=== PATIENT | male | born 1950 | race Caucasian/White ===

== ENCOUNTER 2018-05-05 10:10 | Inpatient (IN) ==
[2018-05-05] MEDS ORDERED: NORMAL SALINE 1,000 ML IV ONE ×2 (10:21→11:22)
[2018-05-05] MEDS ORDERED: DIATRIZOATE MEGLUMINE, SODIUM 30 ML BTL PO ONE (10:26)
--- NOTE | 2018-05-05 10:26 | ERNOTE ---
Abdominal HPI - Narrative Date of Service: 05/05/18 - General Chief Complaint: Abdominal Pain Time Seen by Provider: 05/05/18 10:16 Source: patient Exam Limitations: no limitations - Immun/Allergies/Home Medications Immunizatons: IMMUNIZATION HX Immunizations Up to Date Yes History of Influenza Vaccine Yes Hx Pneumococcal Vaccination No Allergies/Adverse Reactions: Allergies No Known Allergies Allergy (Unverified 05/05/18 10:21) Home Medications: HOME MEDICATIONS Hydrochlorothiazide [Hydrodiuril] 25 mg PO DAILY 05/05/18 [Last Taken Unknown] - History of Present Illness Narrative: Patient is feeling dehydrated. He relates that he was in the hospital for colitis a little over a week ago. Severe diarrhea, CT revealed colitis. He took 7 days of antibiotics but still feels weak and dehydrated. No CP or SOB. No vomiting. No blood in stool. Mild intermittent abdominal pain. Nothing seems to make this better or worse. Timing: constant Quality: mild Activities at Onset: none Modifying Factors - (Improves): Present: other - nothign Modifying Factors - (Worsens): Present: other - nothign Associated Symptoms: Absent: chest pain, fever/chills, shortness of breath, swelling/mass in abdomen Prior Abdominal Problems: Present: none Prior Treatment: Present: recently seen, treated by physician Review of Systems - Review of Systems Constitutional: Absent: fever EYE: Present: no symptoms reported ENT: Absent: sore throat Respiratory: Absent: shortness of breath Cardiology: Absent: chest pain Gastrointestinal/Abdominal: Present: See HPI Genitourinary: Absent: dysuria All Other Systems: All systems neg except as marked - Patient's Past Medical History Patient History - Medical: Other Patient History - Cardiac/Respiratory: Hypertension Patient History - Cancer: No Hx of Cancer Patient History - Surgical Procedures: Appendectomy Patient History - Other: None - Social History Living Situations: home Abuse History: No History of abuse Psych History: No pertinent hx Smoking Status: Never smoker Alcohol Use: sober Drug Use: none - Immunizations Immunizations Up to Date: Yes Hx Pneumococcal Vaccination: No History of Influenza Vaccine: Yes Physical Exam - Physical Exam General Appearance: Present: alert, no apparent distress Head Exam: Present: normal inspection, no evidence of injury Eye Exam: Normal inspection: bilateral, PERRL: bilateral Ears, Nose, Throat: Present: normal ENT inspection Neck: Present: normal inspection Respiratory: Present: no respiratory distress, normal breath sounds, no accessory muscle use, lungs clear Cardiovascular/Chest: Present: regular rate, rhythm, normal peripheral pulses Gastrointestinal/Abdominal: Present: normal bowel sounds, nondistended, soft, other - mild left sided tenderness. No peritoneal signs. No guarding or rebound. Back Exam: Absent: CVA tenderness (R), CVA tenderness (L) Extremity Exam: Present: normal range of motion Neurological Exam: Present: alert, no motor/sensory deficits Skin Exam: Present: normal color, warm/dry ED Progress - Results and Orders Patient's Lab Results:: I have reviewed the patient's lab results. - Vital Signs Patient's Vital Signs:: I have reviewed the patient's vital signs. Vital Signs: Vital Signs 05/05/18 10:18 Temperature 36.8 C Pulse Rate 114 H Respiratory 18 Rate Blood Pressure 122/75 O2 Sat by Pulse 96 Oximetry - EKG EKG read: Interp. by me EKG Comments: Sinus tachycardia, rate 108. Non-specific, no STEMI - CT/Ultrasound CT/Ultrasound Narrative: I reviewed officail radiology report for CT abd/pelvis - Progress/Reassessment Chief Complaint: Abdominal Pain Progress Note-Subjective: 05/05/18 14:34 IV fluids and IV ABx given. Will admit the patient, D/W Dr Willoughby. Patient agreeable. Departure Clinical Impression: Fever, Leukocytosis, Dehydration, Colitis - Departure Disposition: Still a patient Condition: Stable
[2018-05-05] MEDS ORDERED: DIATRIZOATE MEGLUMINE, SODIUM 30 ML BTL ONE (10:34)
[2018-05-05 10:45] LABS: Hematocrit 41.2 % (42.0-52.0); Hemoglobin 13.8 gm/dL (13.5-18.0); Mean Cell Volume 93.8 fl (78-100); Mean Corpuscular Hemoglobin 31.4 pg (27-31); Mean Corpuscular Hgb Conc 33.5 g/dl (32-36); Mean Platelet Volume 10.6 fl (8-11.3); Neutrophil # 20.5 K/mm3 (1.3-6.0); Neutrophil % 89.3 % (42-75.0); Platelet Count 273 K/mm3 (150-450); Red Blood Count 4.39 M/mm3 (4.7-6.0); Red Cell Distribution Width 13.6 % (11.5-14.0)
[2018-05-05 11:01] LABS: Total Cells Counted 100
[2018-05-05 11:02] LABS: ALT 27 U/L (19-67); AST 14 U/L (0-48); Albumin * 3.3 gm/dl (3.4-5.0); Alkaline Phosphatase * 59 U/L (50-170); BUN/Creatinine Ratio 13.1 (9.0-21.6); Bilirubin, Total 0.8 mg/dL (0.0-1.1); Blood Urea Nitrogen 17 mg/dL (6-23); CRP 4.5 mg/dL (0.0-0.9); Ca. Corrected For Albumin 8.9 mg/dL (8.4-10.2); Calcium * 8.7 mg/dL (7.9-10.9); Carbon Dioxide 24.7 mmol/L (24-32.6); Chloride 100 mmol/L (97-106); Glucose * 136 mg/dL (70-110); Lipase 775 U/L (73-393); Potassium 3.7 mmol/L (3.4-4.6); Sodium 138 mmol/L (132-142); Total Protein 7.8 gm/dL (6.2-8.2)
[2018-05-05 11:05] LABS: Troponin I Less than 0.017 ng/ml (0.00-0.10)
[2018-05-05 11:37] LABS: Band 11 % (0-2.0); Immature Granulocyte 1 (0-1); Lymphocyte 4 % (20-51); Monocyte 7 % (0-9); Neutrophil 77 % (42-75); Neutrophil # 17.7 K/mm3 (1.3-6.0)
[2018-05-05 12:59] LABS: Urine Bilirubin Negative (NEGATIVE); Urine Blood Negative /ul (NEGATIVE); Urine Ketone Negative (NEGATIVE); Urine Nitrite Negative (NEGATIVE); Urine Protein Negative (NEGATIVE); Urine Specific Gravity 1.025 SP.GR. (1.005-1.030); Urine Urobilinogen Normal (NORMAL)
[2018-05-05 13:07] LABS: Urine Appearance Slightly Cloudy (CLEAR); Urine Color Yellow
[2018-05-05 13:08] LABS: Urine Bacteria None Seen; Urine RBC None Seen /hpf (0-5); Urine WBC None Seen /hpf (0-5)
[2018-05-05] MEDS ORDERED: PIPERACILLIN SODIUM/TAZOBACTAM 3.375 GM in DEXTROSE 5 % IN WATER 100 ML IV ONE ×6 (14:25→16:10)
[2018-05-05] MEDS ORDERED: LEVOFLOXACIN IN DEXTROSE 5 % 500 MG/100 ML BAG IV SCH (14:30)
[2018-05-05] MEDS ORDERED: metroNIDAZOLE/SODIUM CHLORIDE 500 MG/100 ML BAG IV SCH (14:30)
[2018-05-05] MEDS ORDERED: HYDROmorphone HCL 2 MG/ML VIAL IV PRN (20:21)
[2018-05-05] MEDS ORDERED: ONDANSETRON HCL/PF 2 MG/ML VIAL IV PRN (20:22)
--- NOTE | 2018-05-05 20:26 | HP ---
Chief Complaint - Chief Complaint Date of Service: 05/05/18 Time of Service: 20:17 Chief Complaint: "Watery Diarrhea, fevers". Source of HPI- Pt; reliable, ERP report. History of Present Illness: Mr. Storey is a 68-yr-old WM with PMH of HTN only. Pt is from [place], [place] and was in the area to conduct a service for his sister in law. He reports that about 1 week ago, he developed diarrhea while in his hometown and went to the ER. Imaging tests done there showed he had Colitis. He was discharged home on Cipro and Flagyl. He states that the diarrhea was mostly liquid/watery. He denied the associated symptoms of abdominal pain & nausea, vomiting and bloody stools. He had fevers and chills. The symptoms were not aggravated by eating or drinking. He states that he took the antibiotics as advised and the diarrhea slowed down. However,today, he began having the diarrhea again and they were as many as 23 times, was liquid yellow, watery and he had a fever of 102.2. At the ED he was febrile with temp of 38.5. The significant abnormal labs were: WBC-->23,000 with LT shift & 11 bands, CRP--> 4.5, Amylase--> 127, Lipase --> 12.7. An abdominal CT scan showed residual colonic wall thickening in the sigmoid colon with the findings being suggestive of resolving/resolved sigmoid colitis. He will be admitted for failure to outpatient treatment of colitis. - Patient's Past Medical History Patient History - Medical: No pertinent hx, Other Patient History - Cardiac/Respiratory: Hypertension Patient History - Cancer: No Hx of Cancer Patient History - Surgical Procedures: Appendectomy Patient History - Other: None - Family History Brother Family History - Medical: Father Family History - Medical: Family History - Cardiac/Respiratory: Aneurysm Mother Family History - Medical: , History Unknown - Social History Living Situations: spouse Abuse History: No History of abuse Psych History: No pertinent hx Smoking Status: Never smoker Have you smoked in the past 12 months: No Alcohol Use: sober Drug Use: none - Immunizations Immunizations Up to Date: Yes Hx Pneumococcal Vaccination: No History of Influenza Vaccine: Yes Review Of Systems (GEN) - Review of Systems Generalized/Overall Review: Present: Weakness, Chills, Fever, Malaise, Fatigue. Absent: Diaphoresis EENTM: Absent: Eye Pain, Blurred Vision, Tearing Respiratory: Absent: Cough, Shortness of Breath, Orthopnea Cardiac: Absent: Chest Pain, Edema Abdominal: Present: Diarrhea. Absent: Nausea, Vomiting, Hematemesis, Abdominal Pain, Melena, Bright blood from rectum Genitourinary: Absent: Burning, Itching, Urgency, Frequency, Hematuria Musculoskeletal: Absent: Joint Pain, Back Pain, Joint Swelling Neurological: Present: Headache. Absent: Anxiety, Depressed, Emotional Problems , Numbness, Parasthesia Skin: Present: Dryness. Absent: Lesions, Bruising Endocrine: Present: Other. Absent: Intolerance to Cold, Flushing, Increased Thirst Misc: All systems neg except as marked Immunizations: IMMUNIZATION HX Immunizations Up to Date Yes History of Influenza Vaccine Yes Hx Pneumococcal Vaccination No Allergies/Adverse Reactions: Allergies Allergy/AdvReac Type Severity Reaction Status Date / Time No Known Allergies Allergy Verified 05/05/18 15:15 Home Medications: HOME MEDICATIONS Cholecalciferol [Vitamin D] 5,000 unit PO DAILY 05/05/18 [Last Taken Unknown] Cyanocobalamin (Vitamin B-12) [Vitamin B12] 2,500 mcg PO DAILY 05/05/18 [Last Taken Unknown] Hydrochlorothiazide [Hydrodiuril] 25 mg PO DAILY 05/05/18 [Last Taken Unknown] Exam - Exam Vital Signs: Vital Signs - Last Taken Temp 37.6 C H 05/05/18 15:09 Pulse 91 05/05/18 15:09 Resp 16 05/05/18 15:09 BP 135/80 05/05/18 15:09 Pulse Ox 96 05/05/18 15:09 Constitutional: Present: Alert, Oriented x3, Cooperative, Mild distress ENT Exam: Present: normal ENT inspection, dry mucous membranes Eye Exam: bilateral eye: normal inspection, PERRL Neck: Present: non-tender, full range of motion Back Exam: Present: normal inspection, no CVA tenderness Breasts: Present: Exam deferred Respiratory: Present: No rales, No wheezing Cardiovascular/Chest: Present: normal peripheral pulses, regular rate, rhythm, no chest tenderness Abdomen: Present: Normal bowel sounds, soft, no rebound tenderness, tender - Tender all over.. Absent: guarding /Rectal: Present: Exam deferred Extremity: Present: normal range of motion, normal inspection, no pedal edema Skin Exam: Present: warm/dry, no cyanosis Lymphatic: Present: no adenopathy Neurologic: Present: alert, normal mood/affect, oriented x 3 Appearance: Present: appropriate appearance, appropriate insight Eye contact: Present: cooperative, good eye contact, normal speech Thoughts: Present: normal thought pattern, no apparent hallucination Diagnostic Studies: Laboratory Results WBC 23.0 K/mm3 (4.0-10.5) H 05/05/18 10:43 RBC 4.39 M/mm3 (4.7-6.0) L 05/05/18 10:43 Hgb 13.8 gm/dL (13.5-18.0) 05/05/18 10:43 Hct 41.2 % (42.0-52.0) L 05/05/18 10:43 MCV 93.8 fl (78-100) 05/05/18 10:43 MCH 31.4 pg (27-31) H 05/05/18 10:43 MCHC 33.5 g/dl (32-36) 05/05/18 10:43 RDW 13.6 % (11.5-14.0) 05/05/18 10:43 Plt Count 273 K/mm3 (150-450) 05/05/18 10:43 MPV 10.6 fl (8-11.3) 05/05/18 10:43 Immature Gran % (Auto) 0.70 % (0.001-0.429) H 05/05/18 10:43 Immature Gran # (Auto) 0.16 K/mm3 (0.000-0.0310) H 05/05/18 10:43 Neutrophils % 89.3 % (42-75.0) H 05/05/18 10:43 Neutrophils % (Manual) 77 % (42-75) H 05/05/18 10:43 Band Neuts % (Manual) 11 % (0-2.0) H 05/05/18 10:43 Lymphocytes % 5.4 % (20-51) L 05/05/18 10:43 Lymphocytes % (Manual) 4 % (20-51) L 05/05/18 10:43 Monocytes % 4.3 % (0.0-9) 05/05/18 10:43 Monocytes % (Manual) 7 % (0-9) 05/05/18 10:43 Eosinophils % 0.0 % (0.0-3.0) 05/05/18 10:43 Basophils % 0.3 % (0.0-1.0) 05/05/18 10:43 Nucleated RBC % 0.0 k/mm3 (0-1) 05/05/18 10:43 Immature Granulocytes 1 (0-1) 05/05/18 10:43 Neutrophils # 20.5 K/mm3 (1.3-6.0) H 05/05/18 10:43 Neutrophils # (Manual) 17.7 K/mm3 (1.3-6.0) H 05/05/18 10:43 Lymphocytes # 1.25 k/mm3 (1.5-3.5) L 05/05/18 10:43 Lymphocytes # (Manual) 0.9 k/mm3 (1.5-3.5) L 05/05/18 10:43 Monocytes # 1.0 k/mm3 (0.0-1.0) 05/05/18 10:43 Monocytes # (Manual) 1.6 k/mm3 (0.0-1.0) H 05/05/18 10:43 Eosinophils # 0.0 k/mm3 (0.0-0.7) 05/05/18 10:43 Absolute Basophils 0.1 k/mm3 (0.0-0.1) 05/05/18 10:43 Sodium 138 mmol/L (132-142) 05/05/18 10:43 Plasma Sodium 139 mmol/L (130-142) 05/05/18 10:43 Potassium 3.7 mmol/L (3.4-4.6) 05/05/18 10:43 Chloride 100 mmol/L (97-106) 05/05/18 10:43 Carbon Dioxide 24.7 mmol/L (24-32.6) 05/05/18 10:43 Anion Gap 17.0 mmol/L (6.8-13.8) H 05/05/18 10:43 BUN 17 mg/dL (6-23) 05/05/18 10:43 Creatinine 1.30 mg/dL (0.4-1.4) 05/05/18 10:43 Est GFR (Non-Af Amer) 58 mL/min (60-130) L 05/05/18 10:43 BUN/Creatinine Ratio 13.1 (9.0-21.6) 05/05/18 10:43 Random Glucose 136 mg/dL (70-110) H 05/05/18 10:43 Calcium 8.7 mg/dL (7.9-10.9) 05/05/18 10:43 Calcium Adj for Albumin 8.9 mg/dL (8.4-10.2) 05/05/18 10:43 Total Bilirubin 0.8 mg/dL (0.0-1.1) 05/05/18 10:43 AST 14 U/L (0-48) 05/05/18 10:43 ALT 27 U/L (19-67) 05/05/18 10:43 Alkaline Phosphatase 59 U/L (50-170) 05/05/18 10:43 Troponin I Less than 0.017 ng/ml (0.00-0.10) 05/05/18 10:43 C-Reactive Prot, Quant 4.5 mg/dL (0.0-0.9) H 05/05/18 10:43 Total Protein 7.8 gm/dL (6.2-8.2) 05/05/18 10:43 Albumin 3.3 gm/dl (3.4-5.0) L 05/05/18 10:43 Amylase 127 U/L (25-115) H 05/05/18 10:25 Lipase 775 U/L (73-393) H 05/05/18 10:43 Urine Color Yellow 05/05/18 12:53 Urine Appearance Slightly cloudy (CLEAR) 05/05/18 12:53 Urine pH 6.0 pH (5.0-7.0) 05/05/18 12:53 Ur Specific Golf 1.025 SP.GR. (1.005-1.030) 05/05/18 12:53 Urine Protein Negative mg/dL (NEGATIVE) 05/05/18 12:53 Urine Glucose (UA) Negative mg/dL (NEGATIVE) 05/05/18 12:53 Urine Ketones Negative mg/dL (NEGATIVE) 05/05/18 12:53 Urine Blood Negative /ul (NEGATIVE) 05/05/18 12:53 Urine Nitrate Negative (NEGATIVE) 06/12/18 12:53 Urine Bilirubin Negative mg/dl (NEGATIVE) 05/05/18 12:53 Urine Urobilinogen Normal EU/dl (NORMAL) 05/05/18 12:53 Ur Leukocyte Esterase Negative /ul (NEGATIVE) 05/05/18 12:53 Urine RBC None seen /hpf (0-5) 05/05/18 12:53 Urine WBC None seen /hpf (0-5) 18 12:53 Ur Epithelial Cells 0-5 /hpf (0-5) 05/05/18 12:53 Urine Bacteria None seen (NONE) 05/05/18 12:53 Assessment/Plan - Assessment/Plan (1) Colitis Assessment: Pt is a 68-yr old WM who presented with complaints of watery diarrhea as many 23 times on DOA. He had been treated with Cipro and Flagyl for what was found to be colitis about 1 week ago and he reported the symptoms seemed to resolve. He denies the associated symptoms of abdminal pain, nauseam, vomiting and hematochezia. He has had fevers and chills. He was found to have an elevated WBC of 23,000 with Left shift and Bandemia. CT scan of the Abdomen showed resolving/resolved sigmoid colitis. Will check several stool studies: Stool cultures, c-diff, Lactoferin and Fecal Calprotectin to help distinguish if it's infectious colitis or medication related colitis. He was given Levaquin and Flagyl at the ED. Since the pt symptoms seemed to relapse after initial treatment with Cipro/flagyl, it is recommended that same regimen be repeated for a period of 1 month. Will provide supportive care with IVF hydration, advance diet as slava, monitor labs, v.s Problem: Acute (2) Elevated pancreatic enzyme Assessment: The pancreas is normal appearing on CT. Will trend the levels. Laboratory Tests 05/05/18 05/05/18 10:25 10:43 Amylase 127 H Lipase 775 H Problem: Acute (3) Leukocytosis Problem: Acute Qualifiers: Leukocytosis type: bandemia Qualified Code(s): D72.825 - Bandemia (4) HTN (hypertension) Assessment: Stable- continue HCTZ. Problem: Chronic Qualifiers: Hypertension type: essential hypertension Qualified Code(s): I10 - Essential (primary) hypertension
[2018-05-05] MEDS: POTASSIUM CHLORIDE 20 MEQ in DEXTROSE 5%-NORMAL SALINE 990 ML IV SCH (21:56)
[2018-05-06] MEDS ORDERED: PIPERACILLIN SODIUM/TAZOBACTAM 3.375 GM in DEXTROSE 5 % IN WATER 100 ML IV SCH ×2
[2018-05-06] MEDS: metroNIDAZOLE/SODIUM CHLORIDE 500 MG/100 ML BAG IV SCH ×4 (00:44→22:12)
[2018-05-06] MEDS: CIPROFLOXACIN IN 5 % DEXTROSE 400 MG/200 ML BAG IV SCH ×3 (02:10→23:46)
[2018-05-06 05:32] LABS: Hematocrit 34.4 % (42.0-52.0); Hemoglobin 11.5 gm/dL (13.5-18.0); Mean Cell Volume 93.2 fl (78-100); Mean Corpuscular Hemoglobin 31.2 pg (27-31); Mean Corpuscular Hgb Conc 33.4 g/dl (32-36); Mean Platelet Volume 10.7 fl (8-11.3); Neutrophil # 9.9 K/mm3 (1.3-6.0); Neutrophil % 80.1 % (42-75.0); Platelet Count 222 K/mm3 (150-450); Red Blood Count 3.69 M/mm3 (4.7-6.0); Red Cell Distribution Width 13.7 % (11.5-14.0); White Blood Count 12.3 K/mm3 (4.0-10.5)
[2018-05-06 05:44] LABS: Albumin * 2.4 gm/dl (3.4-5.0); Anion Gap 10.9 mmol/L (6.8-13.8); BUN/Creatinine Ratio 9.1 (9.0-21.6); Bilirubin, Total 0.5 mg/dL (0.0-1.1); Ca. Corrected For Albumin 8.9 mg/dL (8.4-10.2); Calcium * 7.9 mg/dL (7.9-10.9); Carbon Dioxide 24.5 mmol/L (24-32.6); Potassium 3.4 mmol/L (3.4-4.6); Total Protein 6.2 gm/dL (6.2-8.2)
--- NOTE | 2018-05-06 06:22 | PN ---
Subjective - Date and Time Seen Date: 05/06/18 Time: 06:19 Subjective Narrative: Pt seen this am. Diarrhea is still persistent. He reports 10 liquid stools. He feels better. Stool studies still pending. No other acute events overnight. Objective - Vitals Vitals: Last Vital Signs Temp 36.7 C 05/06/18 02:30 Pulse 77 05/06/18 02:30 Resp 18 05/06/18 02:30 BP 111/63 05/06/18 02:30 Pulse Ox 96 05/06/18 02:30 - Abnormal Lab Findings Abnormal Lab Findings: Abnormal Lab Results 05/06/18 05/06/18 Range/Units 05:00 05:12 WBC 12.3 H D (4.0-10.5) K/mm3 RBC 3.69 L (4.7-6.0) M/mm3 Hgb 11.5 L (13.5-18.0) gm/dL Hct 34.4 L (42.0-52.0) % MCH 31.2 H (27-31) pg Immature Gran % (Auto) 0.50 H (0.001-0.429) % Immature Gran # (Auto) 0.06 H (0.000-0.0310) K/mm3 Neutrophils % 80.1 H (42-75.0) % Lymphocytes % 12.2 L (20-51) % Neutrophils # 9.9 H (1.3-6.0) K/mm3 Chloride 108 H (97-106) mmol/L Random Glucose 129 H (70-110) mg/dL ALT 18 L (19-67) U/L Alkaline Phosphatase 48 L (50-170) U/L Albumin 2.4 L (3.4-5.0) gm/dl - Exam Constitutional: Present: Alert, Oriented x3, Cooperative, No distress ENT Exam: Present: normal ENT inspection Neck: Present: non-tender, full range of motion, supple Breasts: Present: Exam deferred Respiratory: Present: No rales, No wheezing Cardiovascular/Chest: Present: normal peripheral pulses, regular rate, rhythm, no chest tenderness Abdomen: Present: Normal bowel sounds, soft, nontender /Rectal: Present: Exam deferred Extremity: Present: normal range of motion, non-tender, normal inspection, no pedal edema Skin Exam: Present: warm/dry, no cyanosis, cool/dry Lymphatic: Present: no adenopathy Neurologic: Present: no motor/sensory deficits, alert, normal mood/affect Appearance: Present: appropriate appearance, appropriate insight Eye contact: Present: cooperative, good eye contact, normal speech Thoughts: Present: normal thought pattern, no apparent hallucination Assessment/Plan - Problems/Diagnosis (1) Colitis Problem: Acute Narrative: Pt is a 68-yr old WM who presented with complaints of watery diarrhea as many 23 times on DOA. He had been treated with Cipro and Flagyl for what was found to be colitis about 1 week ago and he reported the symptoms seemed to resolve. He denies the associated symptoms of abdminal pain, nausea, vomiting and hematochezia. He has had fevers and chills. He was found to have an elevated WBC of 23,000 with Left shift and Bandemia. CT scan of the Abdomen showed resolving/resolved sigmoid colitis. Will check several stool studies: Stool cultures, c-diff, Lactoferin and Fecal Calprotectin to help distinguish if it's infectious colitis or medication related colitis. He was given Levaquin and Flagyl at the ED. Since the pt symptoms seemed to relapse after initial treatment with Cipro/flagyl, it is recommended that same regimen be repeated for a period of 1 month. Will provide supportive care with IVF hydration, advance diet as slava, monitor labs, v.s (2) Elevated pancreatic enzyme Problem: Acute Narrative: The pancreas is normal appearing on CT. Will trend the levels. Laboratory Tests 05/05/18 05/05/18 10:25 10:43 Amylase 127 H Lipase 775 H (3) Leukocytosis Problem: Acute Qualifiers: Leukocytosis type: bandemia Qualified Code(s): D72.825 - Bandemia (4) HTN (hypertension) Problem: Chronic Qualifiers: Hypertension type: essential hypertension Qualified Code(s): I10 - Essential (primary) hypertension Narrative: Stable- continue HCTZ.
[2018-05-06] MEDS: POTASSIUM CHLORIDE 20 MEQ in DEXTROSE 5%-NORMAL SALINE 990 ML IV SCH ×3 (07:00→22:11)
[2018-05-06] MEDS ORDERED: HYDROCHLOROTHIAZIDE 25 MG TABLET PO SCH (09:00)
[2018-05-06] MEDS: ENOXAPARIN SODIUM 40 MG/0.4 ML SYRG SC SCH (13:00)
--- NOTE | 2018-05-07 05:10 | PN ---
Subjective - Date and Time Seen Date: 05/07/18 Time: 05:10 Subjective Narrative: Pt seen this morning. Reports 2 episodes of diarrhea in the night. Tolerated full liquid diet. No other acute events overnight. Objective - Vitals Vitals: Last Vital Signs Temp 37.6 C H 05/07/18 03:19 Pulse 66 05/07/18 03:19 Resp 20 05/07/18 03:19 BP 114/63 05/07/18 03:19 Pulse Ox 95 05/07/18 03:19 - Exam Constitutional: Present: Alert, Oriented x3, Cooperative, No distress ENT Exam: Present: normal ENT inspection, hearing grossly normal Neck: Present: non-tender, full range of motion Breasts: Present: Exam deferred Respiratory: Present: lungs clear Cardiovascular/Chest: Present: normal peripheral pulses, regular rate, rhythm, no chest tenderness Abdomen: Present: Normal bowel sounds, soft, tender - generalized /Rectal: Present: Exam deferred Extremity: Present: normal range of motion, non-tender, normal inspection Skin Exam: Present: warm/dry Lymphatic: Present: no adenopathy Neurologic: Present: no motor/sensory deficits, alert Appearance: Present: appropriate appearance, appropriate insight Eye contact: Present: cooperative, good eye contact, normal speech Thoughts: Present: normal thought pattern, no apparent hallucination Assessment/Plan - Problems/Diagnosis (1) Colitis Problem: Acute Narrative: Pt is a 68-yr old WM who presented with complaints of watery diarrhea as many 23 times on DOA. He had been treated with Cipro and Flagyl for what was found to be colitis about 1 week ago and he reported the symptoms seemed to resolve. He denies the associated symptoms of abdminal pain, nausea, vomiting and hematochezia. He has had fevers and chills. He was found to have an elevated WBC of 23,000 with Left shift and Bandemia. CT scan of the Abdomen showed resolving/resolved sigmoid colitis. Will check several stool studies: Stool cultures, c-diff, Lactoferin and Fecal Calprotectin to help distinguish if it's infectious colitis or medication related colitis. He was given Levaquin and Flagyl at the ED. Since the pt symptoms seemed to relapse after initial treatment with Cipro/flagyl, it is recommended that same regimen be repeated for a period of 1 month. Will provide supportive care with IVF hydration, advance diet as slava, monitor labs, v.s 05/07- Pt feels better, diarrhea is improved. Will stop IVF and advance diet to reg. (2) Elevated pancreatic enzyme Problem: Resolved Narrative: Laboratory Tests 05/05/18 05/05/18 05/06/18 10:25 10:43 05:12 Amylase 127 H 54 Lipase 775 H 180 (3) Leukocytosis Problem: Resolved Qualifiers: Leukocytosis type: bandemia Qualified Code(s): D72.825 - Bandemia Narrative: Laboratory Tests 05/05/18 05/06/18 10:43 05:00 WBC 23.0 H 12.3 H D Immature Gran % (Auto) 0.70 H 0.50 H Immature Gran # (Auto) 0.16 H 0.06 H Neutrophils % 89.3 H 80.1 H (4) HTN (hypertension) Problem: Chronic Qualifiers: Hypertension type: essential hypertension Qualified Code(s): I10 - Essential (primary) hypertension Narrative: Stable- Continue Hctz
[2018-05-07 05:28] LABS: Hematocrit 35.3 % (42.0-52.0); Hemoglobin 11.6 gm/dL (13.5-18.0); Mean Cell Volume 93.1 fl (78-100); Mean Corpuscular Hemoglobin 30.6 pg (27-31); Mean Corpuscular Hgb Conc 32.9 g/dl (32-36); Mean Platelet Volume 10.4 fl (8-11.3); Neutrophil # 3.6 K/mm3 (1.3-6.0); Neutrophil % 50.4 % (42-75.0); Platelet Count 231 K/mm3 (150-450); Red Blood Count 3.79 M/mm3 (4.7-6.0); Red Cell Distribution Width 13.5 % (11.5-14.0); White Blood Count 7.2 K/mm3 (4.0-10.5)
[2018-05-07 05:43] LABS: Albumin * 2.5 gm/dl (3.4-5.0); Anion Gap 11.6 mmol/L (6.8-13.8); BUN/Creatinine Ratio 5.8 (9.0-21.6); Bilirubin Direct 0.1 mg/dL (0.0-0.3); Bilirubin, Total 0.3 mg/dL (0.0-1.1); Bilirubin,Indirect 0.2 mg/dL (0.1-0.7); Calcium * 8.1 mg/dL (7.9-10.9); Carbon Dioxide 23.8 mmol/L (24-32.6); Estimated Creat Clear 68.6; Potassium 3.4 mmol/L (3.4-4.6); Total Protein 6.1 gm/dL (6.2-8.2)
[2018-05-07] MEDS: metroNIDAZOLE/SODIUM CHLORIDE 500 MG/100 ML BAG IV SCH ×3 (07:27→22:04)
[2018-05-07] MEDS: CIPROFLOXACIN IN 5 % DEXTROSE 400 MG/200 ML BAG IV SCH ×2 (13:29→23:14)
[2018-05-07] MEDS: ENOXAPARIN SODIUM 40 MG/0.4 ML SYRG SC SCH (13:31)
[2018-05-07] MEDS: POTASSIUM CHLORIDE 20 MEQ in DEXTROSE 5%-NORMAL SALINE 990 ML IV SCH (15:56)
--- NOTE | 2018-05-08 05:16 | DS ---
<Rayna Solano - Last Filed: 05/08/18 06:37> (1) Colitis Problem: Resolved (2) Elevated pancreatic enzyme Problem: Resolved (3) Leukocytosis Problem: Resolved QualifierTitle: Leukocytosis type: bandemia Qualified Code(s): D72.825 - Bandemia (4) HTN (hypertension) Problem: Chronic QualifierTitle: Hypertension type: essential hypertension Qualified Code( s): I10 - Essential (primary) hypertension Description of Stay: Admission date: Discharge date:05/08/18 Description of Hospital Stay. is a 68-yr-old WM with PMH of HTN only. Pt is from [place], [place] and was in the area to conduct a service for his sister in law. He reported that about 1 week prior to hospitalization, he had developed diarrhea while in his hometown and went to the ER. Imaging tests done there showed he had Colitis. He was discharged home on Cipro and Flagyl. He stated that the diarrhea was mostly liquid/watery. He denied the associated symptoms of abdominal pain & nausea, vomiting and bloody stools. He had fevers and chills. The symptoms were not aggravated by eating or drinking. He stated that he took the antibiotics as advised and the diarrhea slowed down. However on DOA , he began having the diarrhea again and they were as many as 23 times, was liquid yellow, watery and he had a fever of 102.2. At the ED he was febrile with temp of 38.5. The significant abnormal labs were: WBC-->23,000 with LT shift & 11 bands, CRP--> 4.5, Amylase--> 127, Lipase --> 12.7. An abdominal CT scan showed residual colonic wall thickening in the sigmoid colon with the findings being suggestive of resolving/resolved sigmoid colitis. He was admitted inpatient for further treatment of colitis. Since his symptoms seemed to have relapsed after initial treatment with Cipro & Flagyl, it's recommended that the antibiotic be extended and therefore the same treatment was resumed but through intravenous route. His diet was advanced as slava and received IVF hydration. The diarrhea slowed down and eventually stopped. His WBC trended down to 7,300 as well as the Amylase and Lipase--> 54/180. He felt better overall and was determined stable. He was discharged home on Cipro 500 PO bid & Flagyl 500 po tid x 10 days and advised to follow-up with PCP post discharge. Procedures Performed: none Discharge Location: Home Disposition: Home self-care Condition: Stable Discharge Activity: Activity as tolerated Discharge Diet: General/regular food Custodial Therapy: Speech Therapy Problem Oriented Discharge Instructions to Patient/Family: Colitis Additional Patient Instructions (free text): Please follow-up with your primary care doctor within 1-2 weeks -Patient would benefit from a colonoscopy in 6-8 weeks Prescriptions (Any new or edited meds): Ciprofloxacin HCl [Cipro] 500 mg PO BID #20 tablet metroNIDAZOLE [Flagyl] 500 mg PO TID #30 tablet Complete Home Medications List: Complete Home Medication List: Cholecalciferol [Vitamin D] 5,000 unit PO DAILY 05/05/18 Cyanocobalamin (Vitamin B-12) [Vitamin B12] 2,500 mcg PO DAILY 05/05/18 Hydrochlorothiazide [Hydrodiuril] 25 mg PO DAILY 05/05/18 Ciprofloxacin HCl [Cipro] 500 mg PO BID #20 tablet 05/08/18 metroNIDAZOLE [Flagyl] 500 mg PO TID #30 tablet 05/08/18 <Annamarie Willoughby - Last Filed: 05/08/18 09:22> Procedures Performed: none Discharge Location: Home Discharge Activity: Activity as tolerated Discharge Diet: General/regular food, Other - Advance to regular diet as tolerated
[2018-05-08] MEDS: metroNIDAZOLE/SODIUM CHLORIDE 500 MG/100 ML BAG IV SCH (07:28)
[2018-05-08 09:47] VITALS: BP 132/86
== END 2018-05-08 10:00 | disposition home or self-care (01) | DRG 392 ==
LOC: ER 10:10 → MS 14:30 → OBSVTOIN 05-06 12:03
PROVIDERS: ADMIT Internal Medicine; ATTEND Internal Medicine
DX: I10 Essential (primary) hypertension; D72.825 Bandemia; K52.9 Noninfective gastroenteritis and colitis, unspecified; R74.8 Abnormal levels of other serum enzymes
CPT/HCPCS: 36415; 74177; 80048; 80053; 80076; 81001; 82150; 83690; 84484; 85025; 86140; 87040; 87045; 87046; 87493; 93005; 96361; 96365; 96367; 99285; G0378